=== PATIENT | male | born 1985 | race Caucasian/White ===

== ENCOUNTER 2021-03-24 21:50 | Emergency (ER) | payer BC ==
[~2021-03-24 21:50] MED LIST: ZOLOFT 100MG100 MG PO
[2021-03-24 23:24] VITALS: BP 120/68
== END 2021-03-24 23:24 | disposition home or self-care (01) ==
LOC: ED 21:50
DX: S61.432A Puncture wound without foreign body of left hand, initial encounter (principal); W29.4XXA Contact with nail gun, initial encounter

== ENCOUNTER 2022-02-15 22:07 | Emergency (ER) | payer BC ==
[~2022-02-15] VITALS: Ht 175.3 cm; Wt 72.7 kg
[2022-02-15] MEDS ORDERED: SERTRALINE HCL150 MG PO (22:16)
[2022-02-15 22:42] VITALS: BP 121/82
== END 2022-02-15 22:42 | disposition home or self-care (01) ==
LOC: ED 22:07
DX: S01.81XA Laceration without foreign body of other part of head, initial encounter (principal); F17.210 Nicotine dependence, cigarettes, uncomplicated; Z28.311 Partially vaccinated for COVID-19; W21.07XA Struck by softball, initial encounter; Y93.64 Activity, baseball